=== PATIENT | male | born 1965 | race Caucasian/White ===

== ENCOUNTER 2017-10-16 10:35 | Emergency (ER) | payer OTHER ==
[~2017-10-16] VITALS: Ht 172.7 cm; Wt 136.1 kg
[2017-10-16 10:43] VITALS: Ht 172.7 cm; Wt 136.1 kg
== END 2017-10-16 10:46 | disposition expired ==
LOC: ED 10:35 → EDBD 10:35 → ED 10:35
DX: I46.9 Cardiac arrest, cause unspecified (principal)
CPT/HCPCS: J3490